=== PATIENT | female | born 1995 | race Caucasian/White ===

== ENCOUNTER 2023-04-26 04:37 | Emergency (ER) | payer OTHER ==
[2023-04-26] MEDS ORDERED: fentaNYL 50 mcg/mL 1 mL Vial ONE (04:59)
[2023-04-26] MEDS ORDERED: Ketorolac Tromethamine 30 MG/ML VIAL ONE (05:00)
[2023-04-26 05:02] LABS: #Basophils 0.1 thou/uL (0.0-0.2); #Eosinphils 0.2 thou/uL (0.0-0.7); #Monocytes 0.6 thou/uL (0.11-0.59); #Neutrophils 4.7 thou/uL (1.40-6.50); %Basophils 0.6 % (0.0-1.0); %Eosinophils 1.8 % (0.0-10.0); %Lymphocytes 35.9 % (21.0-51.0); %Neutrophils 54.5 % (42.0-75.0); Hematocrit 40.9 % (36.0-47.0); Hemoglobin 13.8 g/dL (12.0-16.0); Mean Corpuscular HGB CONC 33.7 g/dL (32.0-36.0); Mean Corpuscular Hemoglobin 30.5 pg (27.0-31.0); Mean Corpuscular Volume 90.5 fl (78.0-98.0); Mean Platelet Volume 9.2 fL (7.4-10.4); Platelet Count 306 10x3/uL (130-400); RBC Distribution Width 12.8 % (11.5-14.5); Red Blood Cell (RBC) Count 4.52 mill/uL (4.20-5.40); White Blood Cell (WBC) Count 8.7 10x3/uL (4.8-10.8)
[2023-04-26 05:10] LABS: BHCG - Serum Negative (NEGATIVE); Pregs Control Background? CLEAR/WHITE (CLR/WHITE); Pregs Control Bar Appear? YES (CONTROL BAR)
[2023-04-26 05:24] LABS: ALT (SGPT) 13 U/L (8-55); AST (SGOT) 14 U/L (5-34); Albumin 4.6 g/dL (3.5-5.0); Alkaline Phosphatase 61 U/L (40-110); Anion Gap 12 mmol/L (10-20); BUN (Urea Nitrogen) 12 mg/dL (7.0-18.7); Bilirubin, Total 0.5 mg/dL (0.2-1.2); CK (CPK) 73 U/L (29-168); Calc. Creatinine Clearance 0 mL/min (70-130); Calcium 9.8 mg/dL (7.8-10.44); Carbon Dioxide 21 mmol/L (22-29); Chloride 106 mmol/L (98-107); Estimated GFR 110; Globulin 3.5 g/dL (2.4-3.5); Glucose 89 mg/dL (70-105); Lipase 22 U/L (8-78); Potassium 3.5 mmol/L (3.5-5.1); Protein, Total 8.1 g/dL (6.0-8.3); Sodium 135 mmol/L (136-145)
[2023-04-26 05:27] LABS: Troponin I Less than 0.010 ng/mL (< 0.028)
[2023-04-26 07:56] LABS: SARS-CoV-2 NAA Rapid Test Not Detected (NotDetected)
[2023-04-26] MEDS ORDERED: Iopamidol-370 76% 500 ML MDV (1 ML CHARGE) ONE (10:45)
== END 2023-04-26 08:24 | disposition home or self-care (01) ==
LOC: ERS 04:37
DX: R07.9 Chest pain, unspecified (principal); Z20.822 Contact with and (suspected) exposure to COVID-19
CPT/HCPCS: 71275; 80053; 82550; 83690; 84484; 84703; 85025; 93005; 96374; 96375; J1885; J3010; Q9967

== ENCOUNTER 2024-04-25 02:46 | Observation (INO) | payer OTHER, SELFPAY ==
[2024-04-25] MEDS ORDERED: Lorazepam 2 MG/ML VIAL ONE (02:58)
[2024-04-25 03:33] LABS: #Basophils 0.05 10x3/uL (0.0-0.2); %Basophils 0.6 % (0.0-1.0); %Lymphocytes 41.4 % (21.0-51.0); %Monocytes 6.4 % (0.0-10.0); %Neutrophils 49.4 % (42.0-75.0); Hemoglobin 13.9 g/dL (12.0-16.0); Mean Corpuscular HGB CONC 34.8 g/dL (32.0-36.0); Mean Corpuscular Hemoglobin 31.2 pg (27.0-31.0); Mean Corpuscular Volume 89.7 fL (78.0-98.0); Mean Platelet Volume 9.4 fL (7.4-10.4); Platelet Count 343 10x3/uL (130-400); RBC Distribution Width 12.2 % (11.5-14.5); Red Blood Cell (RBC) Count 4.46 mill/uL (4.20-5.40)
[2024-04-25 03:53] LABS: BHCG - Serum Negative (NEGATIVE); Pregs Control Background? CLEAR/WHITE (CLR/WHITE); Pregs Control Bar Appear? YES (CONTROL BAR)
[2024-04-25 03:55] LABS: Acetaminophen Less than 10 mcg/mL (10.0-30.0); Alcohol Less than 10.0 mg/dL (Less than 10); Salicylate Less than 8.0 mg/dL (15.0-30.0)
[2024-04-25 03:56] LABS: ALT (SGPT) 15 U/L (8-55); AST (SGOT) 15 U/L (5-34); Albumin 3.5 g/dL (3.5-5.0); Alkaline Phosphatase 41 U/L (40-110); Anion Gap 16 mmol/L (10-20); BUN (Urea Nitrogen) 11 mg/dL (7.0-18.7); Bilirubin, Total 0.2 mg/dL (0.2-1.2); Calc. Creatinine Clearance 0 mL/min (70-130); Calcium 9.2 mg/dL (7.8-10.44); Carbon Dioxide 19 mmol/L (22-29); Chloride 108 mmol/L (98-107); Estimated GFR 122; Globulin 3.4 g/dL (2.4-3.5); Glucose 95 mg/dL (70-105); Magnesium 1.8 mg/dL (1.6-2.6); Potassium 3.7 mmol/L (3.5-5.1); Protein, Total 6.9 g/dL (6.0-8.3); Sodium 139 mmol/L (136-145)
[2024-04-25 04:42] LABS: Amphetamine Not Detected (NotDetected); Barbiturates Screen Not Detected (NotDetected); Benzodiazepine Screen Not Detected (NotDetected); Cocaine Metabolite Screen Not Detected (NotDetected); Methadone Not Detected (NotDetected); Methamphetamine Not Detected (NotDetected); Opiate Screen Not Detected (NotDetected); Oxycodone Screen Not Detected (NotDetected); Phencyclidine (PCP) Not Detected (NotDetected); THC/Cannabinoid Screen Detected (NotDetected); Tricyclic Screen Not Detected (NotDetected)
[2024-04-25 06:39] VITALS: BMI 24.1
[2024-04-25] MEDS: Sodium Chloride 0.9% 1,000 ML IV SCH (07:56)
[2024-04-25] MEDS ORDERED: Famotidine 20 MG TAB ONE (08:04)
[2024-04-25] MEDS: Famotidine 20 MG TAB PO SCH (08:06)
[2024-04-25] MEDS: Enoxaparin 40 MG (0.4 mL) SYRINGE SC SCH (08:07)
[2024-04-25] MEDS ORDERED: Acetaminophen 325 MG TAB ONE (14:35)
[2024-04-25] MEDS: Acetaminophen 325 MG TAB PO PRN (14:37)
[2024-04-25] MEDS ORDERED: diphenhydrAMINE 25 MG CAP PO PRN (18:00)
[2024-04-25] MEDS ORDERED: diphenhydrAMINE 50 MG/ML VIAL ONE (18:17)
[2024-04-25] MEDS: diphenhydrAMINE 50 MG/ML VIAL IVP SCH (18:23)
[2024-04-25] MEDS: Ibuprofen 200 MG TAB PO SCH (20:18)
[2024-04-26 04:23] LABS: Anion Gap 12 mmol/L (10-20); BUN (Urea Nitrogen) 11 mg/dL (7.0-18.7); Calc. Creatinine Clearance 136 mL/min (70-130); Calcium 8.3 mg/dL (7.8-10.44); Carbon Dioxide 21 mmol/L (22-29); Chloride 111 mmol/L (98-107); Estimated GFR 123; Glucose 92 mg/dL (70-105); Potassium 3.8 mmol/L (3.5-5.1); Sodium 140 mmol/L (136-145)
[2024-04-26] MEDS ORDERED: clonazePAM 0.5 MG TAB PO SCH (09:00)
[2024-04-26] MEDS: clonazePAM 1 MG TAB PO SCH (09:21)
[2024-04-26 11:43] VITALS: TEMP 98.7
[2024-04-26] MEDS ORDERED: Magnevist 469MG/ML 20 ML VIAL ONE (13:45)
[2024-04-26] MEDS: Lorazepam 2 MG/ML VIAL SLOW IVP SCH (14:11)
[2024-04-26 16:15] VITALS: BP 110/68
[2024-04-27] MEDS ORDERED: Multivit, Therapeutic 1 TAB PO SCH (09:00)
[2024-04-27] MEDS ORDERED: [UNRECOGNIZED DRUG - OTHER] PO SCH (09:00)
[2024-04-27] MEDS ORDERED: CO Q-10 CAPSULE 100 MG PO SCH (09:00)
[2024-04-27] MEDS ORDERED: Non-Formulary Item 1 EACH (Ubidecarenone [Co Q-10] 400 MG Capsule) PO SCH (09:00)
[2024-04-27] MEDS ORDERED: Non-Formulary Item 1 EACH (Multivitamin [Multivitamins] 1 TABLET Tablet) PO SCH (09:00)
[2024-04-27] MEDS ORDERED: Non-Formulary Item 1 EACH (Levocarnitine Tartrate [L-Carnitine] 500 MG Capsule) PO SCH (09:00)
[2024-04-27] MEDS ORDERED: MAGNESIUM 300 MG PO SCH (09:00)
[2024-04-27] MEDS ORDERED: NORETHINDRONE AC ETH ESTRADIOL PO SCH ×2 (09:00)
[2024-04-27] MEDS ORDERED: Acidophilus Lactiobac CAPSULE PO SCH (09:00)
[2024-04-27] MEDS ORDERED: MAGNESIUM PO SCH (09:00)
[2024-04-27] MEDS ORDERED: MAGNESIUM OXIDE PO SCH (09:00)
[2024-04-27] MEDS ORDERED: Non-Formulary Item 1 EACH (L.Acidoph,Paracasei, B.Lactis [Probiotic] 1 EACH Capsule) PO SCH (09:00)
== END 2024-04-26 17:33 | disposition home or self-care (01) ==
LOC: ERS 02:46 → ERHOLD 06:11 → 2SE 18:54
PROVIDERS: ADMIT Internal Medicine; ATTEND Hospitalist
DX: R25.1 Tremor, unspecified (principal); G90.1 Familial dysautonomia [Riley-Day]; T88.3XXA Malignant hyperthermia due to anesthesia, initial encounter; G90.A Postural orthostatic tachycardia syndrome [POTS]; G43.909 Migraine, unspecified, not intractable, without status migrainosus; I73.00 Raynaud's syndrome without gangrene; K58.9 Irritable bowel syndrome, unspecified; K21.9 Gastro-esophageal reflux disease without esophagitis; E03.0 Congenital hypothyroidism with diffuse goiter; Z88.0 Allergy status to penicillin; Z79.899 Other long term (current) drug therapy
CPT/HCPCS: 36415; 62270; 70553; 80048; 80053; 80306; 80307; 83735; 84439; 84443; 84703; 85025; 93005; 95700; 95711; 95819; 96372; 96374; 96375; 96376; A9579; G0378; J1200; J1650; J2060; J7030

== ENCOUNTER 2024-05-26 22:01 | Emergency (ER) | payer OTHER ==
[2024-05-27 00:21] LABS: #Basophils Less than 0.03 10x3/uL (0.0-0.2); #Eosinphils Less than 0.03 10x3/uL (0.0-0.7); %Basophils 0.1 % (0.0-1.0); %Lymphocytes 8.1 % (21.0-51.0); %Monocytes 2.8 % (0.0-10.0); %Neutrophils 88.4 % (42.0-75.0); Hematocrit 39.9 % (36.0-47.0); Hemoglobin 13.6 g/dL (12.0-16.0); Mean Corpuscular HGB CONC 34.1 g/dL (32.0-36.0); Mean Corpuscular Hemoglobin 31.2 pg (27.0-31.0); Mean Corpuscular Volume 91.5 fL (78.0-98.0); Mean Platelet Volume 10.2 fL (7.4-10.4); Platelet Count 320 10x3/uL (130-400); RBC Distribution Width 12.6 % (11.5-14.5); Red Blood Cell (RBC) Count 4.36 mill/uL (4.20-5.40)
[2024-05-27 00:27] LABS: BHCG - Serum Negative (NEGATIVE); Pregs Control Background? CLEAR/WHITE (CLR/WHITE); Pregs Control Bar Appear? YES (CONTROL BAR)
[2024-05-27 00:28] LABS: Bacteria/HPF None Seen HPF (None Seen); Bilirubin Negative (Negative); Blood, Urine Negative (Negative); CAUTI Indications for Culture Pelvic or flank pain; Clarity Clear (Clear); Glucose, Urine (Dipstick) Normal (Negative); Ketone, Urine Negative (Negative); Leukocyte Negative Leu/uL (Negative); Nitrite Negative (Negative); Protein, Urine (Dipstick) Negative (Neg-Trace); RBC/HPF 0-3 HPF (0-3); Specific Gravity, Urine 1.013 (1.002-1.036); Squamous Epithelial None Seen HPF (0-3); Urobilinogen Normal mg/dL (Less than 2); WBC/HPF 0-3 HPF (0-3); pH, Urine 7.5 (5.0-9.0)
[2024-05-27 00:32] LABS: Urine Culture Reflex No No
[2024-05-27 00:32] LABS: ALT (SGPT) 36 U/L (8-55); AST (SGOT) 17 U/L (5-34); Alkaline Phosphatase 48 U/L (40-110); Anion Gap 15 mmol/L (10-20); BUN (Urea Nitrogen) 10 mg/dL (7.0-18.7); Bilirubin, Total 0.3 mg/dL (0.2-1.2); Calc. Creatinine Clearance 0 mL/min (70-130); Calcium 9.7 mg/dL (7.8-10.44); Carbon Dioxide 22 mmol/L (22-29); Chloride 106 mmol/L (98-107); Estimated GFR 108; Globulin 3.5 g/dL (2.4-3.5); Glucose 127 mg/dL (70-105); Potassium 4.5 mmol/L (3.5-5.1); Protein, Total 7.5 g/dL (6.0-8.3); Sodium 138 mmol/L (136-145)
[2024-05-27] MEDS ORDERED: methylPREDNISolone Sod Succ/PF 125 MG/2 ML VIAL ONE (00:49)
[2024-05-27] MEDS ORDERED: Lorazepam 2 MG/ML VIAL ONE (00:49)
== END 2024-05-27 03:24 | disposition home or self-care (01) ==
LOC: ERS 22:01
DX: G35 Multiple sclerosis (principal); K21.9 Gastro-esophageal reflux disease without esophagitis; Z79.899 Other long term (current) drug therapy
CPT/HCPCS: 80053; 81001; 84703; 85025; 93005; 96374; 96375; J2060; J2919

== ENCOUNTER 2024-07-15 00:02 | Emergency (ER) | payer OTHER ==
[2024-07-15] MEDS ORDERED: Lorazepam 2 MG/ML VIAL ONE (01:00)
[2024-07-15] MEDS ORDERED: diphenhydrAMINE 50 MG/ML VIAL ONE (01:00)
== END 2024-07-15 02:00 | disposition home or self-care (01) ==
LOC: ERS 00:02
DX: R25.1 Tremor, unspecified (principal)
CPT/HCPCS: 96374; 96375; J1200; J2060

== ENCOUNTER → 2024-08-02 | Emergency (ER) | payer OTHER | LOC: ERS 21:53 | DX: R25.1 Tremor, unspecified (principal); F17.200 Nicotine dependence, unspecified, uncomplicated; K21.9 Gastro-esophageal reflux disease without esophagitis; Z79.899 Other long term (current) drug therapy | CPT/HCPCS: 96374; 96375 ==

== ENCOUNTER 2024-09-10 21:53 | Emergency (ER) | payer OTHER ==
[2024-09-10] MEDS ORDERED: LORazepam 2 MG/ML SYR.(CARPUJECT) ONE (22:23)
[2024-09-10] MEDS ORDERED: levETIRAcetam 500 MG (5 mL) VIAL ONE (22:23)
[2024-09-10 22:39] LABS: #Basophils 0.05 10x3/uL (0.0-0.2); %Basophils 0.5 % (0.0-1.0); %Eosinophils 1.6 % (0.0-10.0); %Lymphocytes 31.5 % (21.0-51.0); %Monocytes 5.9 % (0.0-10.0); %Neutrophils 60.3 % (42.0-75.0); Hematocrit 38.1 % (36.0-47.0); Hemoglobin 13.2 g/dL (12.0-16.0); Mean Corpuscular HGB CONC 34.6 g/dL (32.0-36.0); Mean Corpuscular Hemoglobin 30.8 pg (27.0-31.0); Mean Corpuscular Volume 88.8 fL (78.0-98.0); Mean Platelet Volume 9.1 fL (7.4-10.4); Platelet Count 262 10x3/uL (130-400); RBC Distribution Width 12.5 % (11.5-14.5); Red Blood Cell (RBC) Count 4.29 mill/uL (4.20-5.40)
[2024-09-10 22:44] LABS: BHCG - Serum Negative (NEGATIVE); Pregs Control Background? CLEAR/WHITE (CLR/WHITE); Pregs Control Bar Appear? YES (CONTROL BAR)
[2024-09-10 22:49] LABS: ALT (SGPT) 27 U/L (8-55); AST (SGOT) 19 U/L (5-34); Albumin 3.8 g/dL (3.5-5.0); Alkaline Phosphatase 45 U/L (40-110); Anion Gap 13 mmol/L (10-20); BUN (Urea Nitrogen) 8 mg/dL (7.0-18.7); Bilirubin, Total 0.3 mg/dL (0.2-1.2); Calc. Creatinine Clearance 0 mL/min (70-130); Calcium 8.9 mg/dL (7.8-10.44); Carbon Dioxide 21 mmol/L (22-29); Chloride 108 mmol/L (98-107); Estimated GFR 121; Globulin 3.2 g/dL (2.4-3.5); Glucose 95 mg/dL (70-105); Potassium 3.9 mmol/L (3.5-5.1); Sodium 138 mmol/L (136-145)
[2024-09-10 22:51] LABS: Acetaminophen Less than 10 mcg/mL (Less than 10); Alcohol Less than 10.0 mg/dL (Less than 10); Salicylate Less than 8.0 mg/dL (Less than 8.0)
[2024-09-11 00:02] LABS: Bacteria/HPF 3+ HPF (None Seen); Bilirubin Negative (Negative); Blood, Urine 1+ (Negative); CAUTI Indications for Culture Alt mental st,lethar; Clarity Turbid (Clear); Glucose, Urine (Dipstick) Normal (Negative); Ketone, Urine 20 mg/dL (Negative); Leukocyte 25 Leu/uL (Negative); Nitrite Negative (Negative); Protein, Urine (Dipstick) Negative (Neg-Trace); Specific Gravity, Urine 1.024 (1.002-1.036); Urobilinogen Normal mg/dL (Less than 2)
[2024-09-11 00:06] LABS: Urine Culture Reflex No No
[2024-09-11 00:09] LABS: Amphetamine Not Detected (NotDetected); Barbiturates Screen Not Detected (NotDetected); Benzodiazepine Screen Detected (NotDetected); Cocaine Metabolite Screen Not Detected (NotDetected); Methadone Not Detected (NotDetected); Methamphetamine Not Detected (NotDetected); Opiate Screen Not Detected (NotDetected); Oxycodone Screen Not Detected (NotDetected); Phencyclidine (PCP) Not Detected (NotDetected); THC/Cannabinoid Screen Detected (NotDetected); Tricyclic Screen Not Detected (NotDetected)
== END 2024-09-11 00:04 | disposition home or self-care (01) ==
LOC: ERS 21:53
DX: R41.82 Altered mental status, unspecified (principal)
CPT/HCPCS: 36415; 70450; 71045; 80053; 80306; 80307; 81001; 84146; 84703; 85025; 93005; J1953; J2060

== ENCOUNTER 2025-08-17 09:47 | Emergency (ER) | payer MEDICAID, OTHER, SELFPAY ==
[2025-08-17 11:44] LABS: #Basophils 0.06 10x3/uL (0.0-0.2); #Eosinophils 0.07 10x3/uL (0.0-0.7); #Monocytes 0.50 10x3/uL (0.11-0.59); #Neutrophils 6.70 10x3/uL (1.40-6.50); %Basophils 0.6 % (0.0-1.0); %Eosinophils 0.7 % (0.0-10.0); %Lymphocytes 23.1 % (21.0-51.0); %Monocytes 5.2 % (0.0-10.0); %Neutrophils 70.1 % (42.0-75.0); Hematocrit 42.7 % (36.0-47.0); Hemoglobin 13.7 g/dL (12.0-16.0); Mean Corpuscular Hemoglobin 29.6 pg (27.0-31.0); Mean Corpuscular Volume 92.2 fL (78.0-98.0); Platelet Count 313 10x3/uL (130-400); Red Blood Cell (RBC) Count 4.63 mill/uL (4.20-5.40); White Blood Cell (WBC) Count 9.57 10x3/uL (4.8-10.8)
[2025-08-17 12:07] LABS: ALT (SGPT) 27 U/L (Less than 34); AST (SGOT) 39 U/L (11-34); Albumin 4.7 g/dL (3.1-4.5); Alkaline Phosphatase 56 U/L (40-110); Anion Gap 15 mmol/L (10-20); BUN (Urea Nitrogen) 9 mg/dL (7.0-18.7); Bilirubin, Total 0.7 mg/dL (0.3-1.2); Calc. Creatinine Clearance 0 mL/min (70-130); Calcium 10.3 mg/dL (7.8-10.44); Carbon Dioxide 26 mmol/L (22-29); Chloride 103 mmol/L (98-107); Globulin 3.9 g/dL (2.4-3.5); Glucose 92 mg/dL (70-105); Potassium 4.6 mmol/L (3.5-5.1); Sodium 139 mmol/L (136-145)
== END 2025-08-17 12:55 | disposition home or self-care (01) ==
LOC: ERS 09:47
DX: R07.2 Precordial pain (principal)
CPT/HCPCS: 71045; 80053; 84484; 85025; 93005